=== PATIENT | female | born 1995 | race Asian ===

== ENCOUNTER 2018-07-19 17:34 | Emergency (ER) | payer OTHER ==
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
[2018-07-19] MEDS ORDERED: IOPAMIDOL (ISOVUE-300) 100 ML BTL ONE (18:16)
[2018-07-19] MEDS ORDERED: IBUPROFEN 600 MG TAB PO ONE (18:28)
[2018-07-19] MEDS ORDERED: HYDROCOD/APAP 5/325 PREPACK#6 BTL TAKEHOME ONE (20:10)
[2018-07-19 20:27] VITALS: BP 105/54
== END 2018-07-19 20:30 | disposition home or self-care (01) ==
DX: S16.1XXA Strain of muscle, fascia and tendon at neck level, initial encounter (principal); R07.1 Chest pain on breathing; V43.52XA Car driver injured in collision with other type car in traffic accident, initial encounter; Y92.410 Unspecified street and highway as the place of occurrence of the external cause; Y99.8 Other external cause status; F17.200 Nicotine dependence, unspecified, uncomplicated
CPT/HCPCS: 82435-PO; 82565-PO; 82947-PO; 84132-PO; 84295-PO; 84520-PO; 85014-PO; Q9967